=== PATIENT | female | born 1960 | race Caucasian/White ===

== ENCOUNTER 2020-06-01 09:57 | Outpatient (CLI) | payer OTHER ==
[2020-06-01] MEDS ORDERED: MULT-449 PO (15:57)
[2020-06-02] MEDS ORDERED: [UNRECOGNIZED DRUG - REMARK] (09:57)
[2020-06-02] MEDS ORDERED: GLUC1CAP48 PO (09:57)
== END 2020-06-01 23:59 | disposition home or self-care (01) ==
LOC: STAR 09:57
PROVIDERS: ATTEND Podiatrist Foot & Ankle Surgery
DX: Z02.9 Encounter for administrative examinations, unspecified (principal)

== ENCOUNTER → 2020-06-08 | Outpatient (CLI) | payer OTHER ==
[~2020-06-08] MED LIST: GLUC1CAP48 PO; MULT-449 PO; [UNRECOGNIZED DRUG - REMARK]
== END | disposition home or self-care (01) ==
LOC: STAR 08:25
PROVIDERS: ATTEND Anesthesiology
DX: Z01.812 Encounter for preprocedural laboratory examination (principal); Z20.828 Contact with and (suspected) exposure to other viral communicable diseases
CPT/HCPCS: 36415; 87635

== ENCOUNTER 2020-06-10 07:30 | Day surgery (SDC) | payer OTHER ==
[~2020-06-10] VITALS: Ht 171.4 cm; Wt 76.0 kg
[~2020-06-10 07:30] MED LIST changes: +BUPIVACAINE/PF 0.5% ONE; +EPINEPHRINE 1 MG/ML, 1ML ONE
[2020-06-10] MEDS ORDERED: CHLORHEXIDINE 15 ML UDC MM STA (07:48)
[2020-06-10] MEDS ORDERED: LACTATED RINGERS 1,000 ML IV SCH (07:48)
[2020-06-10] MEDS ORDERED: ROCURONIUM 10MG/ML,5ML ONE (09:31)
[2020-06-10] MEDS ORDERED: SUCCINYLCHOLINE 20 MG/ML, 10ML ONE (09:31)
[2020-06-10] MEDS ORDERED: ONDANSETRON 2MG/ML, 2ML ONE (09:31)
[2020-06-10] MEDS ORDERED: DEXAMETHASONE 4 MG/ML, 1ML ONE (09:31)
[2020-06-10] MEDS ORDERED: PROPOFOL 10 MG/ML, 20ML ONE (09:31)
[2020-06-10] MEDS ORDERED: CEFAZOLIN 1,000 MG ONE (09:31)
[2020-06-10] MEDS ORDERED: LABETALOL 5MG/ML, 20ML IV PRN (10:00)
[2020-06-10] MEDS ORDERED: METOCLOPRAMIDE 5 MG/ML, 2ML IV PRN (10:00)
[2020-06-10] MEDS ORDERED: ONDANSETRON 2MG/ML, 2ML IVPush PRN (10:00)
[2020-06-10] MEDS ORDERED: PROMETHAZINE 25 MG/ML, 1ML IV PRN (10:00)
[2020-06-10] MEDS ORDERED: OXYcodone 5 MG/5 ML ORAL.SOL UDC PO PRN (10:00)
[2020-06-10] MEDS ORDERED: hydrALAzine 20 MG/ML, 1ML IV PRN (10:00)
[2020-06-10] MEDS ORDERED: FENTANYL PF 100 MCG/2ML IV PRN (10:00)
[2020-06-10] MEDS ORDERED: KETOROLAC 30 MG/1 ML IV PRN (10:00)
[2020-06-10] MEDS ORDERED: HYDROmorphone 1 MG/ML, 1ML INJ IV PRN (10:00)
[2020-06-10] MEDS ORDERED: MEPERIDINE/PF 25MG/0.5ML IVPush PRN (10:00)
[2020-06-10] MEDS ORDERED: ALBUTEROL SULFATE 2.5 MG/3 ML NPPB PRN (10:00)
[2020-06-10] MEDS ORDERED: DIAZEPAM 5 MG/ML, 2ML IV PRN ×2 (10:00)
[2020-06-10] MEDS ORDERED: FENTANYL PF 250 MCG/5ML ONE (10:23)
[2020-06-10] MEDS ORDERED: MIDAZOLAM 1 MG/ML, 2ML ONE (10:23)
== END 2020-06-10 12:10 | disposition home or self-care (01) ==
LOC: OUT 07:30
PROVIDERS: ATTEND Podiatrist Foot & Ankle Surgery
DX: G57.63 Lesion of plantar nerve, bilateral lower limbs (principal); Z20.828 Contact with and (suspected) exposure to other viral communicable diseases; M89.371 Hypertrophy of bone, right ankle and foot; M12.571 Traumatic arthropathy, right ankle and foot
CPT/HCPCS: 27635; 28080; 87635; 88304; J0171; J0330; J0690; J1100; J2250; J2405; J2704; J3010; J7120